=== PATIENT | male | born 1970 | race Caucasian/White ===

== ENCOUNTER 2021-08-10 18:50 | Emergency (ER) | payer OTHER, SELFPAY ==
[2021-08-10 20:18] VITALS: BMI 24.7
[2021-08-10 20:22] VITALS: BP 148/79; PULSE 73; RESP 18; TEMP 36.6; O2SAT 96
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
[2021-08-10] MEDS: Ibuprofen 600 MG TABLET PO (20:51)
[2021-08-10] MEDS: Cyclobenzaprine HCl 10 MG TABLET PO (20:51)
== END 2021-08-10 20:54 | disposition home or self-care (01) ==
PROVIDERS: Emergency Provider Internal Medicine; PCP Internal Medicine
DX: S29.9XXA Unspecified injury of thorax, initial encounter (principal); M54.5 Low back pain; M54.2 Cervicalgia; V53.5XXA Driver of pick-up truck or van injured in collision with car, pick-up truck or van in traffic accident, initial encounter; Y93.9 Activity, unspecified; Y92.410 Unspecified street and highway as the place of occurrence of the external cause; Y99.9 Unspecified external cause status
CPT/HCPCS: 99283